=== PATIENT | female | born 1980 | race Caucasian/White ===

== ENCOUNTER → 2018-08-04 | Outpatient (CLI) | payer OTHER ==
--- NOTE | 2018-08-08 09:29 | MM ---
Reason for exam: screening (asymptomatic). Last mammogram was performed 2 years and 5 months ago. History: Family history of prostate cancer in father. Physical Findings: A clinical breast exam by your physician is recommended on an annual basis and results should be correlated with mammographic findings. MG 3D Screening Mammo W/Cad Bilateral CC and MLO view(s) were taken. Prior study comparison: February 18, 2016, bilateral MG 3d screening mammo w/cad. The breast tissue is heterogeneously dense. This may lower the sensitivity of mammography. No significant changes when compared with prior studies. ASSESSMENT: Benign, BI-RAD 2 RECOMMENDATION: Routine screening mammogram of both breasts in 1 year.
== END | disposition home or self-care (01) ==
LOC: RADMAMWWP 09:57
PROVIDERS: ATTEND Internal Medicine
DX: Z12.31 Encounter for screening mammogram for malignant neoplasm of breast (principal)
CPT/HCPCS: 77063; 77067

== ENCOUNTER → 2020-02-21 | Outpatient (CLI) | payer OTHER ==
--- NOTE | 2020-02-22 11:13 | MM ---
Reason for exam: screening (asymptomatic). Last mammogram was performed 1 year and 7 months ago. History: Family history of prostate cancer in father. Physical Findings: A clinical breast exam by your physician is recommended on an annual basis and results should be correlated with mammographic findings. MG 3D Screening Mammo W/Cad Bilateral CC and MLO view(s) were taken. Prior study comparison: August 04, 2018, bilateral MG 3d screening mammo w/cad. February 18, 2016, bilateral MG 3d screening mammo w/cad. The breast tissue is heterogeneously dense. This may lower the sensitivity of mammography. No significant changes when compared with prior studies. ASSESSMENT: Negative, BI-RAD 1 RECOMMENDATION: Routine screening mammogram of both breasts in 1 year.
== END | disposition home or self-care (01) ==
LOC: RADMAMWWP 15:37
PROVIDERS: ATTEND Internal Medicine
DX: Z12.31 Encounter for screening mammogram for malignant neoplasm of breast (principal)
CPT/HCPCS: 77063; 77067

== ENCOUNTER → 2020-10-22 | Outpatient (CLI) | payer OTHER ==
[2020-10-22 10:26] LABS: Basophils % (A) 1 %; Eosinophils # (A) 0.2 k/uL (0-0.7); Eosinophils % (A) 3 %; HCT 40.7 % (34.0-46.0); HGB 13.3 gm/dL (11.4-16.0); Lymphocytes # (A) 1.7 k/uL (1.0-4.8); Lymphocytes % (A) 35 %; MCH 29.4 pg (25.0-35.0); MCHC 32.7 g/dL (31.0-37.0); MCV 89.9 fL (80.0-100.0); Mean Platelet Volume 8.6; Monocytes # (A) 0.3 k/uL (0-1.0); Monocytes % (A) 6 %; Neutrophils # (A) 2.5 k/uL (1.3-7.7); Neutrophils % (A) 53 %; Platelet Count 235 k/uL (150-450); RBC 4.52 m/uL (3.80-5.40); RDW 14.8 % (11.5-15.5); WBC 4.7 k/uL (3.8-10.6)
== END | disposition home or self-care (01) ==
LOC: LABPAT 09:52
PROVIDERS: ATTEND Obstetrics & Gynecology
DX: Z01.812 Encounter for preprocedural laboratory examination (principal); N92.1 Excessive and frequent menstruation with irregular cycle
CPT/HCPCS: 36415; 85025

== ENCOUNTER 2020-11-04 08:15 | Day surgery (SDC) | payer OTHER ==
[2020-10-31 10:21] VITALS: BMI 22.8
--- NOTE | 2020-10-31 17:05 | HP ---
HISTORY AND PHYSICAL DATE OF SURGERY: 11/04/2020 HISTORY OF PRESENT ILLNESS: The patient is a 40-year-old 4, para 3-0-1-3, who presented to the office complaining of long-standing heavy and very lengthy cycles lasting as long as 10 days. She does occasionally bleed through her protection. Her has had vasectomy and she is interested in proceeding with NovaSure endometrial ablation. PAST MEDICAL HISTORY: Significant for -induced hypertension without hypertension outside of . She additionally has menorrhagia as noted above. SURGICAL HISTORY: She has a history of a D and C in 2007 for miscarriage and then she has also had a surgery on her left arm from an orthopedic perspective. There were no anesthetic concerns. OBSTETRICAL HISTORY: 4, para 3-0-1-3, with 3 term vaginal deliveries without complications aside from -induced hypertension as noted above. She additionally had an 18-week intrauterine demise which delivered vaginally but required D and C for retained placenta. Method of contraception is vasectomy. GYNECOLOGIC HISTORY: Unremarkable, with no history of any infections to include STDs. FAMILY HISTORY: Noncontributory. 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 She is a nonsmoker and reports occasional alcohol. No other social concerns. CURRENT MEDICATIONS: None. ALLERGIES: She has hallucinations with CODEINE by report and had hives with MORPHINE. REVIEW OF SYSTEMS: Confined to history of present illness. PHYSICAL EXAMINATION: Vital signs are stable. The patient is afebrile. In general, this is a well- developed, well-nourished white female in no acute distress. Her heart has a regular rhythm and rate without murmur. Her lungs are clear to auscultation bilaterally in all ta. Her abdomen is nondistended, has normoactive bowel sounds, is soft, nontender and without any palpable masses aside from the uterine fundus. Her extremities are without any cyanosis, clubbing or edema and are nontender to palpation bilaterally. Pelvic examination demonstrates normal external genitalia and BUS with normal vaginal mucosa and cervix, though there was at that time a 2 cm endocervical polyp noted on the cervix, which was removed with a ring forceps, though the base may still be present. It was broadly attached at approximately 7 o'clock to 8 o'clock on the uterine cervix. The uterus itself is anteverted, approximately 6 weeks in size, mobile, nontender and normal in shape. The adnexa are normal and nontender without mass bilaterally. ASSESSMENT AND PLAN: Menometrorrhagia: We discussed options for treatment, and the patient has requested diagnostic hysteroscopy with D and C and NovaSure endometrial ablation. The risks and complications of the procedure have been thoroughly discussed, including risk for bleeding, bleeding requiring transfusion, infection, and injury to local structures to include uterine perforation, Asherman syndrome and subsequent hematometra. She has understood all this and agreed to proceed. We may in addition need to excise the base of the endocervical polyp, should it appear to be still present. MMODL / IJN: [id number] /
[~2020-11-04 08:15] MED LIST: DEXAMETHASONE SOD PHOSPHATE 4 MG/ML 1 ML VIAL IV ONE; HYDROmorphone 0.5 MG/0.5 ML SYRINGE IVP PRN; LACTATED RINGERS 1,000 ML IV SCH; MIDAZOLAM 2 MG/2 ML VIAL IV PRN; ONDANSETRON 4 MG/2 ML VIAL IVP ONE; Pre Op ABX Message 1 EACH MISC MISCELLANE ONE; fentaNYL (PF) 50 MCG/ML 2 ML AMP IV PRN
[2020-11-04] MEDS ORDERED: SCOPOLAMINE 1.5MG/72HR PATCH TRANSDERM ONE (08:58)
[2020-11-04] MEDS ORDERED: MIDAZOLAM 2 MG/2 ML VIAL ONE (09:59)
[2020-11-04] MEDS ORDERED: KETOROLAC 15 MG/ML 1 ML VIAL ONE (09:59)
[2020-11-04] MEDS ORDERED: fentaNYL (PF) 50 MCG/ML 2 ML AMP ONE (09:59)
[2020-11-04] MEDS ORDERED: LIDOCAINE 1% INJ 10MG/ML (20 ML MDV) ONE (09:59)
[2020-11-04] MEDS ORDERED: PROPOFOL 10 MG/ML 20 ML VIAL IV ONE (09:59)
[2020-11-04] MEDS ORDERED: KETOROLAC 15 MG/ML 1 ML VIAL IVP PRN (10:35)
[2020-11-04] MEDS ORDERED: diphenhydrAMINE 50 MG/ML 1 ML VIAL IVP PRN (10:35)
[2020-11-04] MEDS ORDERED: IBUPROFEN 600 MG TAB PO PRN (10:35)
[2020-11-04] MEDS ORDERED: METOCLOPRAMIDE 5 MG/ML 2 ML VIAL IVP PRN (10:35)
[2020-11-04] MEDS ORDERED: ONDANSETRON 4 MG/2 ML VIAL IVP PRN (10:35)
[2020-11-04] MEDS ORDERED: SIMETHICONE 80 MG CHEWABLE PO PRN (10:35)
--- NOTE | 2020-11-04 10:44 | P.OP ---
Date of Procedure: 11/04/20 Preoperative Diagnosis: #1. Menometrorrhagia Postoperative Diagnosis: Same Procedure(s) Performed: #1. Diagnostic hysteroscopy #2. Dilation and curettage #3. NovaSure endometrial ablation Anesthesia: other (Gen. by LMA) Surgeon: Ilir Marrero Estimated Blood Loss (ml): 5 IV fluids (ml): 200 Urine output (ml): 300 Pathology: other (Endometrial curettings) Condition: stable Disposition: PACU Operative Findings: Preoperative pelvic examination demonstrated a roughly 5-6 week midplane mobile normal shaped uterus with normal adnexa bilaterally. The site of the previously removed endocervical polyp did not appear to have any base left to be excised and was left alone. The uterus sounded to 9 cm with a cervical length of approximately 3 cm. The hysteroscope was utilized and both tubal ostia were seen. There was a small amount of shaggy endometrial tissue throughout which was removed during curettage at which time a small to moderate amount of tissue was noted. The settings for the NovaSure tool where a length of 6.0 cm, a width of 4.6 cm for a total power 152 W. After total run time of 78 seconds, the base unit read "procedure complete." The postprocedural hysteroscopic result appeared to be excellent. The patient is a borderline to poor candidate for vaginal hysterectomy should it become necessary. Description of Procedure: The patient was prepped and draped in usual fashion after general anesthesia was administered by the anesthesiologist. A weighted speculum was placed in the bladder draining approximately 300 mL of clear rosa urine. The anterior lip of the cervix was grasped with a single-tooth tenaculum and uterus sounded to 9 cm with cervical length of approximately 3 cm. Serial dilation was carried out to admit the diagnostic hysteroscope which was placed in the major cavity distended with saline. The bilateral tubal ostia were seen. There was a small to moderate amount of shaggy tissue primarily on the anterior wall of the uterus. No pathology was noted. The scope was then set aside in a Telfa placed in the vagina. A small to medium sharp curette was utilized to thoroughly and circumferentially curet the endometrial contents onto the Telfa in the vagina. A small to moderate amount of tissue was noted. The typical gritty texture was encountered throughout. After adequate curettage, the NovaSure tool was placed into the endometrial cavity, opened, and seated well. The settings were a length of 6.0 cm, a width of 4.6 cm for a total power 152 W. The cavity check was attempted and passed without difficulty and the tool was enabled. After a run time of 78 seconds, the base unit read "procedure complete." The tool was closed, removed, and discarded. The hysteroscope was replaced and the result appeared to be excellent. All instrumentation was then removed. There was some ongoing bleeding at the tenaculum sites which were made hemostatic with pressure. Assessment a blood loss for the entire case was less than 5 mL. There were no complications. All sponge, instrument, and needle counts were correct. The patient tolerated the procedure well and proceeded to the recovery room in stable condition. The patient is a relatively poor candidate for vaginal hysterectomy and would likely benefit from a robotic procedure should hysterectomy become necessary in the future.
[2020-11-04] MEDS ORDERED: LACTATED RINGERS 1,000 ML IV SCH (10:45)
[2020-11-04 10:48] VITALS: RESP 16; TEMP 97
[2020-11-04 12:01] VITALS: BP 116/72; PULSE 52
[2020-11-05] MEDS ORDERED: ACETAMINOPHEN TAB 325 MG TAB PO PRN (10:36)
== END 2020-11-04 12:28 | disposition home or self-care (01) ==
LOC: OR 08:15
PROVIDERS: ATTEND Obstetrics & Gynecology
DX: N92.1 Excessive and frequent menstruation with irregular cycle (principal); Z88.5 Allergy status to narcotic agent
CPT/HCPCS: 81025; 88305; 58563; J2250; J1100; J2405; J2001; J3010; J1885; J2704

== ENCOUNTER → 2024-08-03 | Outpatient (CLI) | payer OTHER ==
--- NOTE | 2024-08-04 17:27 | MM ---
Reason for Exam: Screening (asymptomatic). Last mammogram was performed 4 year(s) and 5 month(s) ago. Patient History: Menarche at age 11. First Full-Term at age 22. Father had prostate cancer. Risk Values: Fay 5 year model risk: 0.8%. NCI Lifetime model risk: 8.5%. Prior Study Comparison: 02/18/2016 Bilateral Screening Mammogram, [facility]. 08/04/2018 Bilateral Screening Mammogram, [facility]. 02/21/2020 Bilateral Screening Mammogram, [facility]. Tissue Density: The breasts are heterogeneously dense, which may obscure small masses. Findings: Analyzed By CAD. Unchanged global asymmetry lateral posterior right breast. Other areas of asymmetric density are also unchanged. There is no suspicious group of microcalcifications or new suspicious mass in either breast. Overall Assessment: Benign, BI-RAD 2 Management: Screening Mammogram of both breasts in 1 year. . Patient should continue monthly self-breast exams. A clinical breast exam by your physician is recommended on an annual basis. This exam should not preclude additional follow-up of suspicious palpable abnormalities. Note on Fay scores and lifetime risk: 1. A Fay score greater than 3% is considered moderate risk. If this is the case, consider specialist referral to assess eligibility for a risk reducing agent. 2. If overall lifetime risk for the development of breast cancer is 20% or higher, the patient may qualify for future screening with alternating mammogram and breast MRI. [facility], , 08/04/2024 5:23 PM. Electronically signed and approved by: Christy Bertrand M.D. Radiologist
== END | disposition home or self-care (01) ==
LOC: RADMAMWWP 06:55
PROVIDERS: ATTEND Obstetrics & Gynecology
DX: Z12.31 Encounter for screening mammogram for malignant neoplasm of breast (principal); R92.333 Mammographic heterogeneous density, bilateral breasts
CPT/HCPCS: 77063; 77067